=== PATIENT | male | born 1985 | race African-American/Black ===

== ENCOUNTER 2017-04-01 19:24 | Emergency (ER) | payer MEDICAID | END 2017-04-01 21:22 | disposition home or self-care (01) | LOC: D.ER 19:24 | DX: G89.18 Other acute postprocedural pain (principal); M25.512 Pain in left shoulder; F17.200 Nicotine dependence, unspecified, uncomplicated ==

== ENCOUNTER 2017-06-17 13:17 | Emergency (ER) | payer SELFPAY | END 2017-06-17 15:54 | disposition home or self-care (01) | LOC: D.ER 13:17 | DX: M25.512 Pain in left shoulder (principal); M62.838 Other muscle spasm ==

== ENCOUNTER 2017-09-04 14:55 | Emergency (ER) | payer SELFPAY | END 2017-09-04 16:10 | disposition home or self-care (01) | LOC: D.ER 14:55 | DX: S46.912A Strain of unspecified muscle, fascia and tendon at shoulder and upper arm level, left arm, initial encounter (principal); X58.XXXA Exposure to other specified factors, initial encounter; Y93.9 Activity, unspecified; Y92.89 Other specified places as the place of occurrence of the external cause; F17.200 Nicotine dependence, unspecified, uncomplicated ==

== ENCOUNTER 2018-02-06 02:13 | Emergency (ER) | payer SELFPAY ==
[~2018-02-06] VITALS: Ht 177.8 cm; Wt 77.3 kg
[2018-02-06 02:19] VITALS: Ht 177.8 cm; Wt 77.3 kg
[2018-02-06 14:54] VITALS: BP 110/62
== END 2018-02-06 14:54 | disposition home or self-care (01) ==
LOC: D.ER 02:13
DX: F10.129 Alcohol abuse with intoxication, unspecified (principal)

== ENCOUNTER 2018-03-18 14:00 | Emergency (ER) | payer SELFPAY ==
[~2018-03-18] VITALS: Ht 177.8 cm; Wt 83.5 kg
[2018-03-18 14:14] VITALS: Ht 177.8 cm; Wt 83.5 kg
[2018-03-18] MEDS ORDERED: NAPROSYN500 MG PO (18:28)
[2018-03-18] MEDS ORDERED: HYDROCODONE-APA1 TAB PO (18:28)
[2018-03-18] MEDS ORDERED: ROBAXIN-750750 MG PO (18:28)
[2018-03-18] MEDS ORDERED: BACTRIM DS TABL1 TAB PO (18:29)
[2018-03-18 18:49] VITALS: BP 161/84
== END 2018-03-18 18:50 | disposition home or self-care (01) ==
LOC: D.ER 14:00
DX: L03.116 Cellulitis of left lower limb (principal); M25.50 Pain in unspecified joint; M62.838 Other muscle spasm